=== PATIENT | female | born 1950 | race Caucasian/White ===

== ENCOUNTER → 2017-10-05 | Outpatient (CLI) | payer OTHER ==
[~2017-10-05] MED LIST: ALE70 PO; ALLERGY INJECTION SUBQ; CALC-31 PO; CALC-547 PO; CROM13SP10 NS; DEN60I SQ; DEXL60CA6 PO; FEXO-67 PO; FEXO1TAB39 PO; FISH OIL1 CAP PO; FLUT10SP NS; FLUT16SP19 NS; IBU200 PO; IBUP-56 PO; IPRA15SP7 NS; KRIL1CAP22 PO; LEVO150T72 PO; LEVO50TA80 PO; MON10 PO; MULT-1335 PO; TRA50 PO; TUM500 PO
--- NOTE | 2017-10-09 08:31 | RADIOLOGY IMAGING REPORT ---
FACILITY: [facility] [place] PATIENT NAME: GIRISH PEREIRA : [id number] MR: [id number] V: [id number] EXAM DATE: [id number] ORDERING PHYSICIAN: JEREMIAH YANCEY TECHNOLOGIST: Reina Singer PROCEDURE:BILATERAL DIGITAL SCREENING MAMMOGRAM WITH CAD ASSISTED INTERPRETATION & 3D TOMOSYNTHESIS COMPARISON:10/04/16 with priors to 09/23/11 INDICATIONS:SCREENING FINDINGS: Breast parenchyma is heterogeneously dense. There are no mammographic findings concerning for malignancy. There is no significant interval change. DIAGNOSTIC CATEGORY 1--NEGATIVE. RECOMMENDATIONS: ROUTINE MAMMOGRAM AND CLINICAL EVALUATION. Follow up screening mammogram in 1 year. IMPRESSION: BIRADS 1: Negative. Dictated by: Asher Spears on 10/06/2017 at 12:01 Transcribed by: MYRANDA on 10/06/2017 at 12:38 Approved by: Toby Flores M.D. on 10/09/2017 at 8:30 [facility]
== END ==
LOC: MAMO 01:01
PROVIDERS: ATTEND Obstetrics & Gynecology
DX: Z12.31 Encounter for screening mammogram for malignant neoplasm of breast (principal)
CPT/HCPCS: 77063; 77067